=== PATIENT | male | born 1960 | race African-American/Black ===

== ENCOUNTER 2020-04-12 12:25 | Emergency (ER) | payer OTHER ==
[2020-04-12 14:41] VITALS: BMI 25.8
[2020-04-12 15:38] LABS: CALCIUM 8.8 mg/dL (8.5-10.1)
[2020-04-12 15:39] LABS: BLOOD UREA NITROGEN 26.4 mg/dL (7-18)
[2020-04-12 15:42] LABS: CREATININE 1.3 mg/dL (0.55-1.3)
[2020-04-12 15:43] LABS: BILIRUBIN,TOTAL 0.4 mg/dL (0.2-1); TOT PROT 8.2 g/dl (6.4-8.2)
[2020-04-12 15:55] LABS: POTASSIUM 2.5 mmol/L (3.5-5.1)
[2020-04-12] MEDS ORDERED: POTASSIUM CHLORIDE ORAL LIQUID 20 MEQ/15 ML PO ONE (15:56)
[2020-04-12] MEDS ORDERED: POTASSIUM CHLORIDE ORAL LIQUID 20 MEQ/15 ML ONE (16:01)
[2020-04-12 16:38] LABS: MAGNESIUM 2.1 mg/dL (1.8-2.4)
[2020-04-12] MEDS ORDERED: MAGNESIUM SULF 50% (8.12 MEQ/2 ML-1 GM VIAL) IVPB ONE (17:20)
[2020-04-12] MEDS ORDERED: MAGNESIUM SULFATE IN WATER 2 GM/50 ML IVPB IVPB ONE (17:33)
[2020-04-12] MEDS ORDERED: KCL 10 MEQ IVPB 10 MEQ/100 ML INFUS.BAG IVPB SCH (18:15)
[2020-04-12] MEDS ORDERED: KCL 10 MEQ IVPB 10 MEQ/100 ML INFUS.BAG IVPB ONE (18:26)
[2020-04-12 21:56] LABS: BLOOD UREA NITROGEN 23.2 mg/dL (7-18); CALCIUM 8.1 mg/dL (8.5-10.1)
[2020-04-12 21:59] LABS: CREATININE 1.1 mg/dL (0.55-1.3)
[2020-04-12 22:00] LABS: POTASSIUM 2.8 mmol/L (3.5-5.1)
[2020-04-12] MEDS ORDERED: POTASSIUM CHLORIDE TABS 20 MEQ TABLET.ER (FP) PO ONE ×3 (22:11→22:28)
[2020-04-12 22:46] VITALS: BP 126/89; PULSE 82; TEMP 98.9
== END 2020-04-12 23:26 | disposition home or self-care (01) ==
LOC: JER 12:25
PROC: 3E033GC Introduction of Other Therapeutic Substance into Peripheral Vein, Percutaneous Approach (ICD-10-PCS; principal; 2020-04-12)
PROC: 3E033GC Introduction of Other Therapeutic Substance into Peripheral Vein, Percutaneous Approach (ICD-10-PCS; 2020-04-12)
DX: E87.6 Hypokalemia (principal)
CPT/HCPCS: 36415; 80048; 80053; 83735; 93005; 93010; 99284-25

== ENCOUNTER 2020-11-28 15:47 | Observation (INO) | payer OTHER ==
[2020-11-28] MEDS ORDERED: LORazepam 2 MG/ML SDV VIAL IVPUSH ONE (18:10)
[2020-11-28] MEDS ORDERED: LORazepam 2 MG/ML SDV VIAL ONE (18:12)
[2020-11-28 19:35] LABS: BASO % 0.2 % (0-2.0); EOS % 0.4 % (0-4.5); HEMATOCRIT 33.6 % (35.4-49); LYMPH % 14.5 % (8-40); MCH 28.7 pg (25.7-33.7); MCHC 32.8 g/dl (32.0-35.9); MEAN CELL VOLUME 87.4 fl (80-96); MEAN PLT VOLUME 7.1 fl (7.5-11.1); MONO % 12.2 % (3.8-10.2); NEUT % 72.7 % (42.8-82.8); PLATELET COUNT 204 10^3/uL (134-434); RBC 3.84 M/mm3 (4.00-5.60); WHITE BLOOD COUNT 4.5 K/mm3 (4.0-10.0)
[2020-11-28 19:45] LABS: INR 0.89 (0.83-1.09); PROTHROMBIN TIME (PATIENT) 10.8 SEC (9.7-13.0)
[2020-11-28 19:48] LABS: ACTIVATED PTT 26.9 SECONDS (25.2-36.5)
[2020-11-28 19:49] LABS: CHLORIDE 104 mmol/L (98-107); SODIUM 140 mmol/L (136-145)
[2020-11-28 19:51] LABS: CALCIUM 8.5 mg/dL (8.5-10.1)
[2020-11-28 19:53] LABS: ALBUMIN 2.8 g/dl (3.4-5.0); ANION GAP 8 MMOL/L (8-16); BLOOD UREA NITROGEN 21.1 mg/dL (7-18); CO2 28 mmol/L (21-32); GLUCOSE,RANDOM 76 mg/dL (74-106)
[2020-11-28 19:55] LABS: CREATININE 1.3 mg/dL (0.55-1.3); SGOT/AST 21 U/L (15-37); SGPT/ALT 22 U/L (13-61)
[2020-11-28 19:57] LABS: BILIRUBIN,TOTAL 0.3 mg/dL (0.2-1)
[2020-11-28 19:59] LABS: ALK PHOS 100 U/L (45-117)
[2020-11-28] MEDS ORDERED: LACTATED RINGERS SOLUTION 1000 ML INFUS.BAG IV ONE (22:17)
[2020-11-29 00:53] LABS: VENOUS BASE EXCESS 3.1 mmol/L (-2-2); VENOUS O2 SATURATION 97.1 % (70-80); VENOUS PCO2 42.6 mmHg (38-52); VENOUS PH 7.432 (7.310-7.410)
[2020-11-29] MEDS ORDERED: ALBUTEROL SO4 2.5/IPRATROPIUM 0.5 INH SOL 3 ML VIAL.NEB. NEB PRN (05:53)
[2020-11-29 06:30] VITALS: BMI 19.5
[2020-11-29] MEDS ORDERED: BACLOFEN 10 MG TABLET (FP) PO SCH (06:30)
[2020-11-29] MEDS: ENOXAPARIN NA (PORCINE) 40 MG/0.4 ML DISP.SYRIN SQ SCH (10:46)
[2020-11-29] MEDS: PANTOPRAZOLE 40 MG TABLET PO SCH (10:46)
[2020-11-29] MEDS: DARUNAVIR/COB/EMTRI/TENOF (SYMTUZA) TABLET (NF) PO SCH (10:47)
[2020-11-29 11:33] LABS: BASO % 0.3 % (0-2.0); HEMATOCRIT 34.4 % (35.4-49); HEMOGLOBIN 11.3 GM/dL (11.7-16.9); LYMPH % 15.4 % (8-40); MCH 28.3 pg (25.7-33.7); MCHC 32.8 g/dl (32.0-35.9); MEAN CELL VOLUME 86.3 fl (80-96); MEAN PLT VOLUME 7.2 fl (7.5-11.1); MONO % 12.1 % (3.8-10.2); NEUT % 71.2 % (42.8-82.8); PLATELET COUNT 217 10^3/uL (134-434); RBC 3.99 M/mm3 (4.00-5.60); RDW 13.3 % (11.9-15.9); WHITE BLOOD COUNT 6.2 K/mm3 (4.0-10.0)
[2020-11-29 11:51] LABS: BLOOD UREA NITROGEN 20.1 mg/dL (7-18); CALCIUM 8.7 mg/dL (8.5-10.1); MAGNESIUM 1.8 mg/dL (1.8-2.4)
[2020-11-29 11:54] LABS: BILIRUBIN,TOTAL 0.3 mg/dL (0.2-1); CREATININE 1.3 mg/dL (0.55-1.3); PHOSPHOROUS 3.4 mg/dL (2.5-4.9); TOT PROT 8.6 g/dl (6.4-8.2)
[2020-11-29] MEDS ORDERED: METOCLOPRAMIDE HCL INJECTION 10 MG/2 ML VIAL IVPUSH ONE (14:22)
[2020-11-30 01:50] LABS: COCAINE, UR NEGATIVE (NEGATIVE); METHADONE, UR NEGATIVE (NEGATIVE); OPIATES, URI NEGATIVE (NEGATIVE); PHENCYCLIDINE,URINE NEGATIVE (NEGATIVE); URINE BARBITURATES NEGATIVE (NEGATIVE); URINE BENZODIAZEPINES NEGATIVE (NEGATIVE)
[2020-11-30 01:51] LABS: URINE AMPHETAMINES NEGATIVE (NEGATIVE)
[2020-11-30 01:53] LABS: PH,URINE 5.5 (5.0-8.0); URINE APPEARANCE CLEAR; URINE BILIRUBIN 1+ (NEGATIVE); URINE COLOR DK YELLOW; URINE GLUCOSE (UA) NEGATIVE (NEGATIVE); URINE KETONE TRACE (NEGATIVE); URINE LEUK ESTERASE NEGATIVE (NEGATIVE); URINE NITRITE NEGATIVE (NEGATIVE); URINE PROTEIN NEGATIVE (NEGATIVE)
[2020-11-30 09:29] LABS: BASO % 0.3 % (0-2.0); HEMATOCRIT 33.4 % (35.4-49); HEMOGLOBIN 11.3 GM/dL (11.7-16.9); LYMPH % 19.2 % (8-40); MCH 29.5 pg (25.7-33.7); MCHC 33.9 g/dl (32.0-35.9); MEAN CELL VOLUME 87.1 fl (80-96); MEAN PLT VOLUME 7.1 fl (7.5-11.1); MONO % 10.2 % (3.8-10.2); NEUT % 69.3 % (42.8-82.8); PLATELET COUNT 231 10^3/uL (134-434); RBC 3.84 M/mm3 (4.00-5.60); RDW 13.5 % (11.9-15.9); WHITE BLOOD COUNT 4.8 K/mm3 (4.0-10.0)
[2020-11-30 09:56] LABS: CALCIUM 8.7 mg/dL (8.5-10.1)
[2020-11-30 09:57] LABS: BLOOD UREA NITROGEN 22.1 mg/dL (7-18); MAGNESIUM 1.8 mg/dL (1.8-2.4)
[2020-11-30] MEDS ORDERED: PT OWN MED DRAWER 7, Y5N ONE (09:59)
[2020-11-30 10:00] LABS: CREATININE 1.5 mg/dL (0.55-1.3); PHOSPHOROUS 3.6 mg/dL (2.5-4.9)
[2020-11-30] MEDS ORDERED: ESCITALOPRAM OXALATE 10 MG TABLET PO SCH (10:00)
[2020-11-30 10:01] LABS: BILIRUBIN,TOTAL 0.5 mg/dL (0.2-1); TOT PROT 8.6 g/dl (6.4-8.2)
[2020-11-30] MEDS: PANTOPRAZOLE 40 MG TABLET PO SCH (10:02)
[2020-11-30] MEDS: DARUNAVIR/COB/EMTRI/TENOF (SYMTUZA) TABLET (NF) PO SCH (10:02)
[2020-11-30] MEDS: ENOXAPARIN NA (PORCINE) 40 MG/0.4 ML DISP.SYRIN SQ SCH (10:02)
[2020-11-30 11:52] VITALS: BP 110/60; PULSE 70; TEMP 98.7
== END 2020-11-30 14:42 | disposition home or self-care (01) ==
LOC: JER 15:47 → INTOOBSV 11-29 04:23 → JERBED 11-29 04:23 → UNDOADMOB 11-29 04:23 → J6S 11-29 05:56 → JERBED 11-29 05:56 → J6S 11-29 13:57 → JERBED 11-29 13:57
PROVIDERS: ADMIT Internal Medicine; ATTEND Student in an Organized Health Care Education/Training Program
PROC: 3E0F7GC Introduction of Other Therapeutic Substance into Respiratory Tract, Via Natural or Artificial Opening (ICD-10-PCS; principal; 2020-11-29)
PROC: 3E023GC Introduction of Other Therapeutic Substance into Muscle, Percutaneous Approach (ICD-10-PCS; 2020-11-29)
PROC: 3E0337Z Introduction of Electrolytic and Water Balance Substance into Peripheral Vein, Percutaneous Approach (ICD-10-PCS; 2020-11-29)
PROC: 3E033NZ Introduction of Analgesics, Hypnotics, Sedatives into Peripheral Vein, Percutaneous Approach (ICD-10-PCS; 2020-11-29)
DX: J43.9 Emphysema, unspecified (principal); B20 Human immunodeficiency virus [HIV] disease; R06.6 Hiccough; Z29.9 Encounter for prophylactic measures, unspecified; R63.4 Abnormal weight loss; R06.82 Tachypnea, not elsewhere classified; D64.9 Anemia, unspecified; F17.210 Nicotine dependence, cigarettes, uncomplicated; F41.8 Other specified anxiety disorders
CPT/HCPCS: 36415; 70450-TC; 71046-TC-FY; 71275-TC; 74177-TC; 80053; 80307; 81003; 82728; 82803; 83540; 83550; 83735; 84100; 84436; 84443; 84484; 85025; 85045; 85379; 85610; 85730; 86359; 86360; 93005; 93010; 93970-TC; 94640; 99285-25; C9803; G0378; J0475; Q9967; U0003; U0005

== ENCOUNTER 2021-02-20 20:29 | Inpatient (IN) | payer OTHER ==
[2021-02-20 22:45] LABS: BASO % 0.4 % (0-2.0); EOS % 2.2 % (0-4.5); HEMATOCRIT 31.5 % (35.4-49); HEMOGLOBIN 10.7 GM/dL (11.7-16.9); LYMPH % 18.6 % (8-40); MCH 29.1 pg (25.7-33.7); MCHC 33.9 g/dl (32.0-35.9); MONO % 13.3 % (3.8-10.2); NEUT % 65.5 % (42.8-82.8); PLATELET COUNT 143 10^3/uL (134-434); RBC 3.66 M/mm3 (4.00-5.60); RDW 13.8 % (11.9-15.9); WHITE BLOOD COUNT 3.5 K/mm3 (4.0-10.0)
[2021-02-20 23:10] LABS: CHLORIDE 101 mmol/L (98-107); SODIUM 139 mmol/L (136-145)
[2021-02-20 23:13] LABS: CALCIUM 8.5 mg/dL (8.5-10.1)
[2021-02-20 23:14] LABS: ALBUMIN 2.5 g/dl (3.4-5.0); BLOOD UREA NITROGEN 24.5 mg/dL (7-18); CO2 32 mmol/L (21-32); GLUCOSE,RANDOM 80 mg/dL (74-106); MAGNESIUM 2.1 mg/dL (1.8-2.4)
[2021-02-20 23:17] LABS: CREATININE 1.2 mg/dL (0.55-1.3); SGOT/AST 20 U/L (15-37); SGPT/ALT 16 U/L (13-61)
[2021-02-20 23:19] LABS: BILIRUBIN,TOTAL 0.2 mg/dL (0.2-1); TOT PROT 7.9 g/dl (6.4-8.2)
[2021-02-20 23:20] LABS: ALK PHOS 105 U/L (45-117)
[2021-02-20 23:26] LABS: ANION GAP 6 MMOL/L (8-16)
[2021-02-20] MEDS ORDERED: POTASSIUM CHLORIDE TABS 20 MEQ TABLET.ER (FP) PO ONE (23:34)
[2021-02-20] MEDS ORDERED: POTASSIUM CHLORIDE 20 MEQ PREMIX IVPB 100 ML IVPB ONE (23:35)
[2021-02-21] MEDS ORDERED: KCL 10 MEQ IVPB 20 MEQ/200 ML INFUS.BAG IVPB ONE (00:05)
[2021-02-21] MEDS ORDERED: POTASSIUM CHLORIDE ORAL LIQUID 20 MEQ/15 ML PO ONE (04:48)
[2021-02-21] MEDS ORDERED: chlorproMAZINE HCL 25 MG/1 ML AMP IM ONE (04:51)
[2021-02-21] MEDS ORDERED: chlorproMAZINE HCL 25 MG/1 ML AMP ONE (05:01)
[2021-02-21] MEDS ORDERED: POTASSIUM CHLORIDE ORAL LIQUID 20 MEQ/15 ML ONE (05:02)
[2021-02-21] MEDS ORDERED: KCL 10 MEQ IVPB 10 MEQ/100 ML INFUS.BAG IVPB ONE ×3 (05:02→07:29)
[2021-02-21] MEDS: KCL 10 MEQ IVPB 10 MEQ/100 ML INFUS.BAG IVPB SCH ×5 (05:22→23:42)
[2021-02-21 05:40] LABS: EPI CELLS 13 /uL (0-25.1); HYALINE CASTS 2 /uL (0-3.1); PH,URINE 6.5 (5.0-8.0); URINE APPEARANCE CLEAR; URINE BACTERIA 3 /uL (0-1359); URINE BILIRUBIN NEGATIVE (NEGATIVE); URINE COLOR YELLOW; URINE GLUCOSE (UA) NEGATIVE (NEGATIVE); URINE KETONE TRACE (NEGATIVE); URINE LEUK ESTERASE NEGATIVE (NEGATIVE); URINE NITRITE NEGATIVE (NEGATIVE); URINE PROTEIN 2+ (NEGATIVE); URINE RBC 8 /uL (0-23.9); URINE WBC 8 /uL (0-25.8)
[2021-02-21 06:29] LABS: HEMATOCRIT 34.1 % (35.4-49); HEMOGLOBIN 11.6 GM/dL (11.7-16.9); MCH 29.5 pg (25.7-33.7); MCHC 33.9 g/dl (32.0-35.9); MEAN PLT VOLUME 7.3 fl (7.5-11.1); PLATELET COUNT 149 10^3/uL (134-434); RBC 3.92 M/mm3 (4.00-5.60); RDW 14.1 % (11.9-15.9); WHITE BLOOD COUNT 4.1 K/mm3 (4.0-10.0)
[2021-02-21 06:49] LABS: CHLORIDE 102 mmol/L (98-107); SODIUM 139 mmol/L (136-145)
[2021-02-21 06:53] LABS: GLUCOSE,RANDOM 83 mg/dL (74-106)
[2021-02-21 06:57] LABS: CALCIUM 8.4 mg/dL (8.5-10.1)
[2021-02-21 06:58] LABS: ALBUMIN 2.6 g/dl (3.4-5.0); BLOOD UREA NITROGEN 23.5 mg/dL (7-18); CO2 29 mmol/L (21-32); MAGNESIUM 2.2 mg/dL (1.8-2.4)
[2021-02-21 07:01] LABS: CREATININE 1.2 mg/dL (0.55-1.3); PHOSPHOROUS 3.5 mg/dL (2.5-4.9); SGOT/AST 22 U/L (15-37); SGPT/ALT 16 U/L (13-61)
[2021-02-21 07:02] LABS: BILIRUBIN,TOTAL 0.4 mg/dL (0.2-1); TOT PROT 8.1 g/dl (6.4-8.2)
[2021-02-21 07:03] LABS: ALK PHOS 111 U/L (45-117)
[2021-02-21 07:19] LABS: ANION GAP 7 MMOL/L (8-16)
[2021-02-21] MEDS ORDERED: ENOXAPARIN NA (PORCINE) 40 MG/0.4 ML DISP.SYRIN SQ ONE (08:42)
[2021-02-21] MEDS: ENOXAPARIN NA (PORCINE) 40 MG/0.4 ML DISP.SYRIN SQ SCH (09:00)
[2021-02-21 10:41] LABS: VENOUS BASE EXCESS -0.6 mmol/L (-2-2); VENOUS O2 SATURATION 97.3 % (70-80); VENOUS PCO2 38.5 mmHg (38-52); VENOUS PH 7.409 (7.310-7.410)
[2021-02-21] MEDS ORDERED: LACTATED RINGERS SOLUTION 1,000 ML/1,000 ML INFUS.BAG IV ONE (13:46)
[2021-02-21 18:03] LABS: CALCIUM 7.9 mg/dL (8.5-10.1)
[2021-02-21 18:04] LABS: ALBUMIN 2.4 g/dl (3.4-5.0); BLOOD UREA NITROGEN 26.2 mg/dL (7-18); MAGNESIUM 1.7 mg/dL (1.8-2.4)
[2021-02-21 18:06] LABS: CREATININE 1.3 mg/dL (0.55-1.3)
[2021-02-21] MEDS ORDERED: MAGNESIUM SULF 50% (8.12 MEQ/2 ML-1 GM VIAL) IVPB ONE (18:06)
[2021-02-21 18:09] LABS: BILIRUBIN,TOTAL 0.4 mg/dL (0.2-1); TOT PROT 7.7 g/dl (6.4-8.2)
[2021-02-21] MEDS: ESCITALOPRAM OXALATE 10 MG TABLET PO SCH (18:31)
[2021-02-21 18:55] VITALS: BMI 20.1
[2021-02-21] MEDS: DARUNAVIR/COB/EMTRI/TENOF (SYMTUZA) TABLET (NF) PO SCH (21:50)
[2021-02-21] MEDS: BACLOFEN 10 MG TABLET (FP) PO SCH (21:51)
[2021-02-22] MEDS: BACLOFEN 10 MG TABLET (FP) PO SCH ×3 (05:59→23:18)
[2021-02-22 08:46] LABS: BASO % 0.5 % (0-2.0); EOS % 1.6 % (0-4.5); HEMATOCRIT 31.9 % (35.4-49); HEMOGLOBIN 10.9 GM/dL (11.7-16.9); LYMPH % 16.1 % (8-40); MCH 29.4 pg (25.7-33.7); MCHC 34.3 g/dl (32.0-35.9); MEAN CELL VOLUME 85.9 fl (80-96); MEAN PLT VOLUME 6.7 fl (7.5-11.1); NEUT % 73.8 % (42.8-82.8); PLATELET COUNT 144 10^3/uL (134-434); RBC 3.71 M/mm3 (4.00-5.60); RDW 14.1 % (11.9-15.9); WHITE BLOOD COUNT 4.1 K/mm3 (4.0-10.0)
[2021-02-22 09:15] LABS: ALBUMIN 2.3 g/dl (3.4-5.0); BLOOD UREA NITROGEN 23.8 mg/dL (7-18); MAGNESIUM 1.6 mg/dL (1.8-2.4)
[2021-02-22 09:18] LABS: CREATININE 1.4 mg/dL (0.55-1.3)
[2021-02-22 09:19] LABS: BILIRUBIN,TOTAL 0.4 mg/dL (0.2-1); TOT PROT 7.6 g/dl (6.4-8.2)
[2021-02-22] MEDS: ESCITALOPRAM OXALATE 10 MG TABLET PO SCH (09:43)
[2021-02-22] MEDS: ENOXAPARIN NA (PORCINE) 40 MG/0.4 ML DISP.SYRIN SQ SCH (09:44)
[2021-02-22] MEDS: DARUNAVIR/COB/EMTRI/TENOF (SYMTUZA) TABLET (NF) PO SCH (09:44)
[2021-02-22] MEDS ORDERED: LISINOPRIL 5 MG TABLET PO SCH (10:00)
[2021-02-22] MEDS ORDERED: MAGNESIUM SULF 50% (8.12 MEQ/2 ML-1 GM VIAL) IVPB ONE (11:11)
[2021-02-22] MEDS ORDERED: MAGNESIUM OXIDE 400 MG TABLET (FP) PO ONE (11:34)
[2021-02-22] MEDS: KCL 10 MEQ IVPB 10 MEQ/100 ML INFUS.BAG IVPB SCH ×2 (12:13→13:51)
[2021-02-22 20:46] LABS: CHLORIDE 99 mmol/L (98-107); SODIUM 139 mmol/L (136-145)
[2021-02-22 20:48] LABS: BLOOD UREA NITROGEN 27.9 mg/dL (7-18); CALCIUM 8.4 mg/dL (8.5-10.1); CO2 33 mmol/L (21-32); GLUCOSE,RANDOM 91 mg/dL (74-106)
[2021-02-22 20:52] LABS: CREATININE 1.5 mg/dL (0.55-1.3)
[2021-02-22 21:03] LABS: ANION GAP 7 MMOL/L (8-16)
[2021-02-22] MEDS ORDERED: POTASSIUM CHLORIDE TABS 20 MEQ TABLET.ER (FP) PO ONE (21:49)
[2021-02-22] MEDS: MAGNESIUM OXIDE 400 MG TABLET (FP) PO SCH (23:18)
[2021-02-23] MEDS: BACLOFEN 10 MG TABLET (FP) PO SCH ×3 (06:43→21:30)
[2021-02-23 07:20] LABS: HEMATOCRIT 34.7 % (35.4-49); HEMOGLOBIN 11.7 GM/dL (11.7-16.9); MCH 29.5 pg (25.7-33.7); MCHC 33.9 g/dl (32.0-35.9); MEAN PLT VOLUME 7.6 fl (7.5-11.1); PLATELET COUNT 152 10^3/uL (134-434); RBC 3.99 M/mm3 (4.00-5.60); RDW 14.6 % (11.9-15.9); WHITE BLOOD COUNT 5.2 K/mm3 (4.0-10.0)
[2021-02-23 07:38] LABS: ALBUMIN 2.7 g/dl (3.4-5.0); BLOOD UREA NITROGEN 28.8 mg/dL (7-18); CALCIUM 8.6 mg/dL (8.5-10.1)
[2021-02-23 07:42] LABS: BILIRUBIN,TOTAL 0.3 mg/dL (0.2-1); CREATININE 1.6 mg/dL (0.55-1.3); PHOSPHOROUS 3.5 mg/dL (2.5-4.9); TOT PROT 8.4 g/dl (6.4-8.2)
[2021-02-23] MEDS ORDERED: POTASSIUM CHLORIDE TABS 20 MEQ TABLET.ER (FP) PO ONE (08:56)
[2021-02-23] MEDS ORDERED: SODIUM CHLORIDE 1,000 ML IV SCH (09:00)
[2021-02-23] MEDS: DARUNAVIR/COB/EMTRI/TENOF (SYMTUZA) TABLET (NF) PO SCH (09:02)
[2021-02-23] MEDS ORDERED: PT OWN MED DRAWER 7, Y5N ONE (10:00)
[2021-02-23] MEDS: ENOXAPARIN NA (PORCINE) 40 MG/0.4 ML DISP.SYRIN SQ SCH (10:03)
[2021-02-23] MEDS: ESCITALOPRAM OXALATE 10 MG TABLET PO SCH (10:04)
[2021-02-23] MEDS: MAGNESIUM OXIDE 400 MG TABLET (FP) PO SCH ×2 (10:04→21:30)
[2021-02-23 20:49] LABS: BLOOD UREA NITROGEN 31.8 mg/dL (7-18); CALCIUM 8.6 mg/dL (8.5-10.1)
[2021-02-23 20:51] LABS: MAGNESIUM 2.1 mg/dL (1.8-2.4)
[2021-02-23 20:53] LABS: CREATININE 1.7 mg/dL (0.55-1.3)
[2021-02-24] MEDS: BACLOFEN 10 MG TABLET (FP) PO SCH ×3 (06:24→21:54)
[2021-02-24] MEDS ORDERED: PT OWN MED DRAWER 7, Y5N ONE ×2 (08:06→15:35)
[2021-02-24] MEDS: DARUNAVIR/COB/EMTRI/TENOF (SYMTUZA) TABLET (NF) PO SCH (08:21)
[2021-02-24 08:32] LABS: BASO % 0.3 % (0-2.0); HEMATOCRIT 34.2 % (35.4-49); HEMOGLOBIN 11.8 GM/dL (11.7-16.9); LYMPH % 20.4 % (8-40); MCH 29.6 pg (25.7-33.7); MCHC 34.3 g/dl (32.0-35.9); MEAN CELL VOLUME 86.3 fl (80-96); MEAN PLT VOLUME 7.6 fl (7.5-11.1); MONO % 12.4 % (3.8-10.2); NEUT % 63.9 % (42.8-82.8); PLATELET COUNT 175 10^3/uL (134-434); RBC 3.97 M/mm3 (4.00-5.60); RDW 14.2 % (11.9-15.9); WHITE BLOOD COUNT 4.5 K/mm3 (4.0-10.0)
[2021-02-24 08:58] LABS: ALBUMIN 2.6 g/dl (3.4-5.0); CALCIUM 8.5 mg/dL (8.5-10.1)
[2021-02-24 08:59] LABS: BLOOD UREA NITROGEN 30.9 mg/dL (7-18); MAGNESIUM 1.9 mg/dL (1.8-2.4)
[2021-02-24 09:00] LABS: CREATININE 1.5 mg/dL (0.55-1.3)
[2021-02-24 09:02] LABS: BILIRUBIN,TOTAL 0.4 mg/dL (0.2-1); PHOSPHOROUS 4.2 mg/dL (2.5-4.9); TOT PROT 8.7 g/dl (6.4-8.2)
[2021-02-24] MEDS: MAGNESIUM OXIDE 400 MG TABLET (FP) PO SCH ×2 (09:22→21:54)
[2021-02-24] MEDS: ESCITALOPRAM OXALATE 10 MG TABLET PO SCH (09:22)
[2021-02-24] MEDS: ENOXAPARIN NA (PORCINE) 40 MG/0.4 ML DISP.SYRIN SQ SCH (09:23)
[2021-02-24] MEDS ORDERED: POTASSIUM CHLORIDE 40 MEQ in SODIUM CHLORIDE 1,000 ML IV SCH (13:15)
[2021-02-24] MEDS ORDERED: SODIUM CHLORIDE 1,000 ML with POTASSIUM CHLORIDE 40 MEQ IV SCH (13:15)
[2021-02-24] MEDS ORDERED: POTASSIUM CHLORIDE TABS 20 MEQ TABLET.ER (FP) PO ONE (13:45)
[2021-02-24] MEDS: METOCLOPRAMIDE HCL 10 MG TABLET (FP) PO SCH (17:54)
[2021-02-24] MEDS: PANTOPRAZOLE 40 MG TABLET PO SCH (21:54)
[2021-02-25] MEDS: BACLOFEN 10 MG TABLET (FP) PO SCH ×3 (06:03→21:21)
[2021-02-25] MEDS: METOCLOPRAMIDE HCL 10 MG TABLET (FP) PO SCH ×3 (06:03→17:08)
[2021-02-25 07:50] LABS: HEMATOCRIT 29.4 % (35.4-49); HEMOGLOBIN 10.1 GM/dL (11.7-16.9); MCH 29.9 pg (25.7-33.7); MCHC 34.3 g/dl (32.0-35.9); MEAN CELL VOLUME 87.2 fl (80-96); MEAN PLT VOLUME 7.4 fl (7.5-11.1); PLATELET COUNT 146 10^3/uL (134-434); RBC 3.37 M/mm3 (4.00-5.60); RDW 14.3 % (11.9-15.9); WHITE BLOOD COUNT 3.7 K/mm3 (4.0-10.0)
[2021-02-25 08:15] LABS: ALBUMIN 2.3 g/dl (3.4-5.0)
[2021-02-25 08:16] LABS: BLOOD UREA NITROGEN 31.2 mg/dL (7-18); CALCIUM 8.2 mg/dL (8.5-10.1)
[2021-02-25 08:18] LABS: PHOSPHOROUS 3.7 mg/dL (2.5-4.9)
[2021-02-25 08:20] LABS: BILIRUBIN,TOTAL 0.2 mg/dL (0.2-1); CREATININE 1.4 mg/dL (0.55-1.3); TOT PROT 7.5 g/dl (6.4-8.2)
[2021-02-25] MEDS: DARUNAVIR/COB/EMTRI/TENOF (SYMTUZA) TABLET (NF) PO SCH (09:32)
[2021-02-25] MEDS: ESCITALOPRAM OXALATE 10 MG TABLET PO SCH (09:33)
[2021-02-25] MEDS: PANTOPRAZOLE 40 MG TABLET PO SCH ×2 (09:34→21:21)
[2021-02-25] MEDS: ENOXAPARIN NA (PORCINE) 40 MG/0.4 ML DISP.SYRIN SQ SCH (09:34)
[2021-02-25] MEDS: MAGNESIUM OXIDE 400 MG TABLET (FP) PO SCH ×2 (09:34→21:20)
[2021-02-25] MEDS ORDERED: POTASSIUM CHLORIDE TABS 20 MEQ TABLET.ER (FP) PO ONE (12:31)
[2021-02-26] MEDS: METOCLOPRAMIDE HCL 10 MG TABLET (FP) PO SCH ×3 (07:03→15:41)
[2021-02-26] MEDS: BACLOFEN 10 MG TABLET (FP) PO SCH ×3 (07:03→21:20)
[2021-02-26 08:22] LABS: BASO % 0.4 % (0-2.0); EOS % 3.4 % (0-4.5); HEMATOCRIT 30.4 % (35.4-49); HEMOGLOBIN 10.5 GM/dL (11.7-16.9); MCH 29.9 pg (25.7-33.7); MCHC 34.7 g/dl (32.0-35.9); MEAN CELL VOLUME 86.2 fl (80-96); MEAN PLT VOLUME 7.1 fl (7.5-11.1); MONO % 13.3 % (3.8-10.2); NEUT % 62.9 % (42.8-82.8); PLATELET COUNT 152 10^3/uL (134-434); RBC 3.52 M/mm3 (4.00-5.60); RDW 14.4 % (11.9-15.9); WHITE BLOOD COUNT 3.7 K/mm3 (4.0-10.0)
[2021-02-26 08:39] LABS: ALBUMIN 2.6 g/dl (3.4-5.0); BLOOD UREA NITROGEN 23.5 mg/dL (7-18); CALCIUM 8.5 mg/dL (8.5-10.1); MAGNESIUM 2.1 mg/dL (1.8-2.4)
[2021-02-26 08:42] LABS: CREATININE 1.4 mg/dL (0.55-1.3); PHOSPHOROUS 3.6 mg/dL (2.5-4.9)
[2021-02-26 08:43] LABS: BILIRUBIN,TOTAL 0.3 mg/dL (0.2-1); TOT PROT 7.8 g/dl (6.4-8.2)
[2021-02-26] MEDS: ESCITALOPRAM OXALATE 10 MG TABLET PO SCH (09:53)
[2021-02-26] MEDS: MAGNESIUM OXIDE 400 MG TABLET (FP) PO SCH ×2 (09:53→21:21)
[2021-02-26] MEDS: PANTOPRAZOLE 40 MG TABLET PO SCH ×2 (09:53→21:20)
[2021-02-26] MEDS: DARUNAVIR/COB/EMTRI/TENOF (SYMTUZA) TABLET (NF) PO SCH (15:40)
[2021-02-26] MEDS: MAG HYDROX/AL HYDROX/SIMETH 30 ML UNIT-DOSE CUP PO SCH ×2 (15:41→20:02)
[2021-02-27] MEDS: MAG HYDROX/AL HYDROX/SIMETH 30 ML UNIT-DOSE CUP PO SCH ×3 (02:43→14:12)
[2021-02-27] MEDS: BACLOFEN 10 MG TABLET (FP) PO SCH ×2 (06:19→14:12)
[2021-02-27] MEDS: METOCLOPRAMIDE HCL 10 MG TABLET (FP) PO SCH ×3 (06:19→16:45)
[2021-02-27 07:58] LABS: BASO % 0.3 % (0-2.0); HEMATOCRIT 31.3 % (35.4-49); HEMOGLOBIN 10.6 GM/dL (11.7-16.9); LYMPH % 18.7 % (8-40); MCH 29.5 pg (25.7-33.7); MCHC 33.8 g/dl (32.0-35.9); MEAN CELL VOLUME 87.2 fl (80-96); MEAN PLT VOLUME 7.5 fl (7.5-11.1); MONO % 13.3 % (3.8-10.2); NEUT % 65.7 % (42.8-82.8); PLATELET COUNT 164 10^3/uL (134-434); WHITE BLOOD COUNT 4.7 K/mm3 (4.0-10.0)
[2021-02-27 08:17] LABS: CALCIUM 8.8 mg/dL (8.5-10.1)
[2021-02-27 08:18] LABS: ALBUMIN 2.4 g/dl (3.4-5.0); BLOOD UREA NITROGEN 22.4 mg/dL (7-18); MAGNESIUM 2.2 mg/dL (1.8-2.4)
[2021-02-27 08:21] LABS: CREATININE 1.3 mg/dL (0.55-1.3); PHOSPHOROUS 3.3 mg/dL (2.5-4.9)
[2021-02-27 08:23] LABS: BILIRUBIN,TOTAL 0.4 mg/dL (0.2-1); TOT PROT 7.9 g/dl (6.4-8.2)
[2021-02-27] MEDS ORDERED: PT OWN MED DRAWER 7, Y5N ONE (08:27)
[2021-02-27] MEDS: PANTOPRAZOLE 40 MG TABLET PO SCH (10:06)
[2021-02-27] MEDS: ESCITALOPRAM OXALATE 10 MG TABLET PO SCH (10:09)
[2021-02-27] MEDS: ENOXAPARIN NA (PORCINE) 40 MG/0.4 ML DISP.SYRIN SQ SCH (10:11)
[2021-02-27] MEDS: MAGNESIUM OXIDE 400 MG TABLET (FP) PO SCH (10:11)
[2021-02-27] MEDS: DARUNAVIR/COB/EMTRI/TENOF (SYMTUZA) TABLET (NF) PO SCH (11:40)
[2021-02-27 12:00] VITALS: TEMP 98.2
[2021-02-27 14:30] VITALS: BP 122/83; PULSE 107
== END 2021-02-27 17:50 | disposition home or self-care (01) | DRG 641 ==
LOC: JER 20:29 → JERBED 23:43 → J4W 02-21 18:03
PROVIDERS: ADMIT Internal Medicine; ATTEND Internal Medicine
PROC: 0DB68ZX Excision of Stomach, Via Natural or Artificial Opening Endoscopic, Diagnostic (ICD-10-PCS; 2021-02-26)
PROC: 0DB58ZX Excision of Esophagus, Via Natural or Artificial Opening Endoscopic, Diagnostic (ICD-10-PCS; 2021-02-26)
PROC: 0DB98ZX Excision of Duodenum, Via Natural or Artificial Opening Endoscopic, Diagnostic (ICD-10-PCS; principal; 2021-02-26 14:00)
DX: E87.6 Hypokalemia (principal); N17.9 Acute kidney failure, unspecified; Q39.6 Congenital diverticulum of esophagus; R06.6 Hiccough; Z21 Asymptomatic human immunodeficiency virus [HIV] infection status; E86.0 Dehydration; R11.10 Vomiting, unspecified; E83.42 Hypomagnesemia; N18.9 Chronic kidney disease, unspecified; K21.00 Gastro-esophageal reflux disease with esophagitis, without bleeding
CPT/HCPCS: 36415; 71045-TC-FY; 76775-TC; 80048; 80053; 81003; 82088; 82436; 82803; 82962; 83735; 83930; 83935; 84100; 84133; 84244; 84300; 84443; 84484; 85025; 85027; 93005; 93010; 99283-25; C9803; J0475; U0003; U0005

== ENCOUNTER 2024-07-03 16:44 | Observation (INO) | payer OTHER ==
[2024-07-03 18:00] LABS: BASO % 0.8 % (0-2.0); EOS % 0.1 % (0-4.5); HEMATOCRIT 35.9 % (35.4-49); HEMOGLOBIN 11.8 GM/dL (11.7-16.9); LYMPH % 14.4 % (8-40); MCH 28.2 pg (25.7-33.7); MEAN CELL VOLUME 85.6 fl (80-96); MEAN PLT VOLUME 6.8 fl (7.5-11.1); MONO % 10.8 % (3.8-10.2); NEUT % 73.9 % (42.8-82.8); PLATELET COUNT 140 10^3/uL (134-434); RBC 4.19 M/mm3 (4.00-5.60); RDW 15.6 % (11.9-15.9); WHITE BLOOD COUNT 5.3 K/mm3 (4.0-10.0)
[2024-07-03 18:24] LABS: POTASSIUM 4.4 mmol/L (3.5-5.1)
[2024-07-03 18:26] LABS: ALBUMIN 2.5 g/dl (3.4-5.0); CALCIUM 8.4 mg/dL (8.5-10.1); MAGNESIUM 1.9 mg/dL (1.8-2.4)
[2024-07-03 18:27] LABS: BLOOD UREA NITROGEN 28.2 mg/dL (7-18)
[2024-07-03 18:29] LABS: CREATININE 1.4 mg/dL (0.55-1.3)
[2024-07-03 18:31] LABS: BILIRUBIN,TOTAL 0.2 mg/dL (0.2-1); TOT PROT 7.5 g/dl (6.4-8.2)
[2024-07-03] MEDS ORDERED: CEFTRIAXONE 1 G/50 ML PREMIX 50 ML IVPB ONE (21:10)
[2024-07-03] MEDS ORDERED: AZITHROMYCIN IVPB 500 MG/250 ML BAG IVPB ONE (21:10)
[2024-07-03] MEDS: CEFTRIAXONE 1 GM in DEXTROSE 5%-WATER - 100 ML IVPB ONE (21:15)
[2024-07-03] MEDS: AZITHROMYCIN IVPB 500 MG in DEXTROSE 5%-WATER - 250 ML IVPB ONE (21:31)
[2024-07-03] MEDS: ASPIRIN 325 MG ENTERIC COATED TABLET (FP) PO ONE (23:37)
[2024-07-03] MEDS: ATORVASTATIN CA 80 MG TABLET (FP) PO ONE (23:37)
[2024-07-03] MEDS: CLOPIDOGREL BISULFATE 300 MG TABLET PO ONE (23:37)
[2024-07-04] MEDS ORDERED: BACLOFEN 10 MG TABLET (FP) ONE ×2 (00:47→05:34)
[2024-07-04] MEDS: BACLOFEN 10 MG TABLET (FP) PO ONE (00:49)
[2024-07-04] MEDS: SODIUM CHLORIDE 1,000 ML IV SCH (02:48)
[2024-07-04] MEDS: BACLOFEN 10 MG TABLET (FP) PO SCH (06:01)
[2024-07-04 07:05] LABS: HEMATOCRIT 37.6 % (35.4-49); HEMOGLOBIN 12.6 GM/dL (11.7-16.9); MCH 28.6 pg (25.7-33.7); MCHC 33.5 g/dl (32.0-35.9); MEAN CELL VOLUME 85.3 fl (80-96); MEAN PLT VOLUME 6.9 fl (7.5-11.1); PLATELET COUNT 153 10^3/uL (134-434); RDW 15.2 % (11.9-15.9); WHITE BLOOD COUNT 6.3 K/mm3 (4.0-10.0)
[2024-07-04 07:11] LABS: POTASSIUM 4.1 mmol/L (3.5-5.1)
[2024-07-04 07:13] LABS: ALBUMIN 2.7 g/dl (3.4-5.0); CALCIUM 8.7 mg/dL (8.5-10.1)
[2024-07-04 07:17] LABS: CREATININE 1.4 mg/dL (0.55-1.3)
[2024-07-04 07:18] LABS: BILIRUBIN,TOTAL 0.6 mg/dL (0.2-1); TOT PROT 7.6 g/dl (6.4-8.2)
[2024-07-04 07:21] LABS: CHOLESTEROL 182 mg/dL (50-200); HDL CHOLESTEROL 58 mg/dL (40-60)
[2024-07-04 07:22] LABS: LDL CHOLESTEROL (ONLY SJRH) 113 mg/dL (5-100)
[2024-07-04] MEDS: BICTEGRAV/EMTRICIT/TENOFOV (BIKTARVY) 50-200-25 MG TABLET PO SCH (08:04)
[2024-07-04] MEDS ORDERED: CEFTRIAXONE 1 G/50 ML PREMIX 50 ML IVPB ONE (10:03)
[2024-07-04] MEDS ORDERED: AZITHROMYCIN IVPB 500 MG/250 ML BAG IVPB ONE (10:04)
[2024-07-04] MEDS: CLOPIDOGREL BISULFATE 75 MG TABLET (FP) PO SCH (10:14)
[2024-07-04] MEDS: CEFTRIAXONE 1 G/50 ML PREMIX 50 ML IVPB SCH (10:14)
[2024-07-04] MEDS: POTASSIUM CHLORIDE ORAL LIQUID 20 MEQ/15 ML PO SCH (10:14)
[2024-07-04] MEDS: ASPIRIN 81 MG CHEWABLE TABLETS PO SCH (10:14)
[2024-07-04] MEDS: AZITHROMYCIN IVPB 500 MG/250 ML BAG IVPB SCH (10:41)
[2024-07-04 12:52] LABS: HIV INTERPRETATION PRESUMPTIVE POSITIVE (NEGATIVE)
[2024-07-04] MEDS ORDERED: VANCOMYCIN 1 GM PREMIX (F) 1 GM/200 ML BAG ONE (15:29)
[2024-07-04] MEDS: AMPICILLIN NA/SULBACTAM NA 1.5 GM in SODIUM CHLORIDE 100 ML IVPB SCH (16:39)
[2024-07-04] MEDS: CEFEPIME HCL/D5W 2 GM/50 ML PREMIX IVPB ONE (16:39)
[2024-07-04] MEDS: VANCOMYCIN/WATER FOR INJ (PEG) 1,000 MG/200 ML BAG IVPB ONE (16:39)
[2024-07-04] MEDS: VANCOMYCIN 1 GM PREMIX (F) 1,000 MG/200 ML BAG IVPB ONE (16:56)
[2024-07-04] MEDS ORDERED: ATORVASTATIN CA 80 MG TABLET (FP) PO SCH (22:00)
[2024-07-04] MEDS: ATORVASTATIN CA 80 MG TABLET (FP) PO SCH (22:38)
[2024-07-05] MEDS: SODIUM CHLORIDE 1,000 ML IV SCH (17:11)
[2024-07-05] MEDS: HEPARIN NA (PORCINE) 5,000 UNITS/ML 1ML VIAL SQ SCH (21:41)
[2024-07-05] MEDS: ATORVASTATIN CA 40 MG TABLET (FP) PO SCH (21:41)
[2024-07-06] MEDS: SULFAMETHOXAZOLE/TRIMETHOPRIM 800MG/160MG D.S. TABLET PO SCH (09:28)
[2024-07-06 11:51] LABS: BASO % 0.5 % (0-2.0); EOS % 0.4 % (0-4.5); HEMATOCRIT 37.2 % (35.4-49); LYMPH % 12.7 % (8-40); MCH 27.9 pg (25.7-33.7); MCHC 32.3 g/dl (32.0-35.9); MEAN CELL VOLUME 86.5 fl (80-96); MEAN PLT VOLUME 6.9 fl (7.5-11.1); MONO % 9.3 % (3.8-10.2); NEUT % 77.1 % (42.8-82.8); PLATELET COUNT 137 10^3/uL (134-434); RDW 15.5 % (11.9-15.9); WHITE BLOOD COUNT 5.3 K/mm3 (4.0-10.0)
[2024-07-06 12:19] LABS: POTASSIUM 4.6 mmol/L (3.5-5.1)
[2024-07-06 12:21] LABS: ALBUMIN 2.7 g/dl (3.4-5.0); BLOOD UREA NITROGEN 31.4 mg/dL (7-18); CALCIUM 8.5 mg/dL (8.5-10.1)
[2024-07-06 12:25] LABS: CREATININE 1.4 mg/dL (0.55-1.3)
[2024-07-06 12:26] LABS: BILIRUBIN,TOTAL 0.3 mg/dL (0.2-1); TOT PROT 7.5 g/dl (6.4-8.2)
[2024-07-06] MEDS: metoPROLOL SUCCINATE 25 MG TAB.SR.24H (FP) PO SCH (15:25)
[2024-07-06] MEDS: ATORVASTATIN CA 40 MG TABLET (FP) PO SCH (21:19)
[2024-07-06] MEDS: SACUBITRIL/VALSARTAN 24 MG-26 MG TABLET PO SCH (21:19)
[2024-07-06] MEDS ORDERED: APIXABAN 5 MG TABLET PO SCH (22:00)
[2024-07-06 23:42] VITALS: BMI 20.3
[2024-07-07 07:55] LABS: BASO % 0.4 % (0-2.0); EOS % 0.8 % (0-4.5); HEMATOCRIT 37.5 % (35.4-49); HEMOGLOBIN 12.3 GM/dL (11.7-16.9); LYMPH % 20.9 % (8-40); MCH 28.2 pg (25.7-33.7); MCHC 32.9 g/dl (32.0-35.9); MEAN CELL VOLUME 85.7 fl (80-96); MONO % 14.3 % (3.8-10.2); NEUT % 63.6 % (42.8-82.8); PLATELET COUNT 150 10^3/uL (134-434); RBC 4.37 M/mm3 (4.00-5.60); RDW 15.3 % (11.9-15.9); WHITE BLOOD COUNT 5.4 K/mm3 (4.0-10.0)
[2024-07-07] MEDS ORDERED: APIXABAN 5 MG TABLET PO SCH ×2 (08:00→10:00)
[2024-07-07 08:18] LABS: POTASSIUM 4.5 mmol/L (3.5-5.1)
[2024-07-07 08:28] LABS: CALCIUM 8.6 mg/dL (8.5-10.1)
[2024-07-07 08:29] LABS: ALBUMIN 2.8 g/dl (3.4-5.0); BILIRUBIN,TOTAL 0.4 mg/dL (0.2-1); BLOOD UREA NITROGEN 35.9 mg/dL (7-18); MAGNESIUM 2.1 mg/dL (1.8-2.4)
[2024-07-07 08:30] LABS: CREATININE 1.7 mg/dL (0.55-1.3)
[2024-07-07 08:32] LABS: PHOSPHOROUS 4.4 mg/dL (2.5-4.9); TOT PROT 7.6 g/dl (6.4-8.2)
[2024-07-07] MEDS: ASPIRIN COATED 81 MG TABLET.EC PO SCH (09:44)
[2024-07-07] MEDS: SODIUM CHLORIDE 500 ML IV STA (16:01)
[2024-07-07] MEDS ORDERED: SODIUM CHLORIDE 500 ML IV STA (16:46)
[2024-07-07] MEDS: SODIUM CHLORIDE 1,000 ML IV SCH (17:04)
[2024-07-08 03:43] VITALS: RESP 18
[2024-07-08 08:41] LABS: POTASSIUM 4.6 mmol/L (3.5-5.1)
[2024-07-08 08:42] LABS: CALCIUM 8.7 mg/dL (8.5-10.1)
[2024-07-08 08:43] LABS: BLOOD UREA NITROGEN 39.7 mg/dL (7-18)
[2024-07-08 08:44] LABS: MAGNESIUM 2.2 mg/dL (1.8-2.4)
[2024-07-08 08:46] LABS: CREATININE 1.8 mg/dL (0.55-1.3)
[2024-07-08 08:47] LABS: PHOSPHOROUS 3.6 mg/dL (2.5-4.9)
[2024-07-08] MEDS: metoPROLOL SUCCINATE 25 MG TAB.SR.24H (FP) PO SCH (10:47)
[2024-07-09 07:02] VITALS: BP 130/88; PULSE 92; TEMP 98.6
[2024-07-09 08:11] LABS: BLOOD UREA NITROGEN 42.4 mg/dL (7-18); CALCIUM 8.9 mg/dL (8.5-10.1)
[2024-07-09 08:12] LABS: MAGNESIUM 2.2 mg/dL (1.8-2.4)
[2024-07-09 08:14] LABS: POTASSIUM 4.8 mmol/L (3.5-5.1)
[2024-07-09 08:15] LABS: CREATININE 1.7 mg/dL (0.55-1.3); PHOSPHOROUS 3.5 mg/dL (2.5-4.9)
== END 2024-07-09 11:40 | disposition home health service (06) ==
LOC: JER 16:44 → JERBED 22:10 → J4W 07-04 16:34
PROVIDERS: ADMIT Internal Medicine; ATTEND Internal Medicine
PROC: 3E03329 Introduction of Other Anti-infective into Peripheral Vein, Percutaneous Approach (ICD-10-PCS; principal; 2024-07-03)
PROC: 3E023GC Introduction of Other Therapeutic Substance into Muscle, Percutaneous Approach (ICD-10-PCS; 2024-07-03)
PROC: 3E0337Z Introduction of Electrolytic and Water Balance Substance into Peripheral Vein, Percutaneous Approach (ICD-10-PCS; 2024-07-03)
DX: I50.20 Unspecified systolic (congestive) heart failure (principal); I95.1 Orthostatic hypotension; N18.31 Chronic kidney disease, stage 3a; B20 Human immunodeficiency virus [HIV] disease; R06.6 Hiccough; R79.89 Other specified abnormal findings of blood chemistry; Z86.73 Personal history of transient ischemic attack (TIA), and cerebral infarction without residual deficits; N17.9 Acute kidney failure, unspecified; E87.6 Hypokalemia; F17.210 Nicotine dependence, cigarettes, uncomplicated
CPT/HCPCS: 0241U-QW; 36415; 70450-TC; 70496-TC; 70498-TC; 70551-TC; 70552-TC; 71045-TC-FY; 71275-TC; 76775-TC; 80048; 80053; 80061; 83036; 83690; 83735; 84100; 84484; 85025; 85027; 85379; 86480; 86780; 87070; 87116; 87186; 87205; 87206; 87389; 87536; 87899; 93005; 93010; 93306-TC; 97116-GP; 97161-GP; 99285-25; G0378; J0475; J1644; Q9967

== ENCOUNTER 2024-11-07 17:57 | Inpatient (IN) | payer OTHER ==
[2024-11-07 19:05] LABS: MEAN CELL VOLUME 89.8 fl (79.0-92.2)
[2024-11-07 19:06] LABS: ABSOLUTE IMMATURE GRANULOCYTES 0.03 x10^3/uL (0.0-0.031); BASOPHILS # 0.03 x10^3/uL (0.01-0.08); EOSINOPHIL % 0.5 % (0.8-7.0); EOSINOPHILS # 0.04 x10^3/uL (0.04-0.54); IMMATURE PLATELET FRACTION # 3.50 x10^3/uL; MCHC 32.5 g/dl (32.3-36.5); MEAN PLT VOLUME 9.2 fl (9.4-12.4); MONOCYTE # 0.88 x10^3/uL (0.30-0.82); MONOCYTE % 10.3 % (5.3-12.2); RDW 13.5 % (12.2-16.4)
[2024-11-07 19:22] LABS: CO2 27.0 mmol/L (21-32)
[2024-11-07 19:23] LABS: GLUCOSE,RANDOM 117.0 mg/dL (74-106)
[2024-11-07 19:25] LABS: CREATININE 2.7 mg/dL (0.55-1.3)
[2024-11-07 19:26] LABS: SGOT/AST 32.0 U/L (15-37); SGPT/ALT 22.0 U/L (13-61)
[2024-11-07 19:27] LABS: TOT PROT 8.2 g/dl (6.4-8.2)
[2024-11-07 19:28] LABS: ALK PHOS 140.0 U/L (45-117)
[2024-11-07] MEDS ORDERED: KCL 10 MEQ IVPB 20 MEQ/200 ML INFUS.BAG IVPB ONE (21:22)
[2024-11-07] MEDS: KCL 10 MEQ IVPB 10 MEQ/100 ML INFUS.BAG IVPB SCH (21:40)
[2024-11-07] MEDS ORDERED: POTASSIUM CHLORIDE ORAL LIQUID 20 MEQ/15 ML ONE (22:33)
[2024-11-07] MEDS: POTASSIUM CHLORIDE ORAL LIQUID 20 MEQ/15 ML PO ONE (22:38)
[2024-11-08] MEDS ORDERED: KCL 10 MEQ IVPB 10 MEQ/100 ML INFUS.BAG IVPB ONE (00:02)
[2024-11-08] MEDS: SODIUM CHLORIDE 1,000 ML IV SCH (03:02)
[2024-11-08 04:11] LABS: CO2 21.0 mmol/L (21-32)
[2024-11-08 04:12] LABS: GLUCOSE,RANDOM 98.0 mg/dL (74-106)
[2024-11-08 04:15] LABS: CREATININE 2.5 mg/dL (0.55-1.3)
[2024-11-08 06:30] LABS: RDW 13.4 % (12.2-16.4)
[2024-11-08 06:32] LABS: IMMATURE PLATELET FRACTION # 2.40 x10^3/uL; MCHC 32.4 g/dl (32.3-36.5); MEAN CELL VOLUME 90.1 fl (79.0-92.2); MEAN PLT VOLUME 9.0 fl (9.4-12.4)
[2024-11-08] MEDS ORDERED: HEPARIN NA (PORCINE) 5,000 UNITS/ML 1ML VIAL ONE (06:33)
[2024-11-08] MEDS: HEPARIN NA (PORCINE) 5,000 UNITS/ML 1ML VIAL SQ SCH (06:38)
[2024-11-08 06:54] LABS: CO2 24.0 mmol/L (21-32); GLUCOSE,RANDOM 95.0 mg/dL (74-106)
[2024-11-08 06:57] LABS: CREATININE 2.4 mg/dL (0.55-1.3); SGOT/AST 20.0 U/L (15-37); SGPT/ALT 20.0 U/L (13-61)
[2024-11-08 06:58] LABS: TOT PROT 7.4 g/dl (6.4-8.2)
[2024-11-08 07:00] LABS: ALK PHOS 122.0 U/L (45-117)
[2024-11-08] MEDS: LACTATED RINGERS SOLUTION 1,000 ML/1,000 ML INFUS.BAG IV SCH (07:31)
[2024-11-08] MEDS ORDERED: POTASSIUM CHLORIDE ORAL LIQUID 20 MEQ/15 ML ONE (08:27)
[2024-11-08] MEDS: POTASSIUM CHLORIDE ORAL LIQUID 20 MEQ/15 ML PO ONE (08:33)
[2024-11-08] MEDS: BICTEGRAV/EMTRICIT/TENOFOV (BIKTARVY) 50-200-25 MG TABLET PO SCH (08:33)
[2024-11-08] MEDS ORDERED: PATIENT'S OWN MEDICATION (NON-FORMULARY) (Omeprazole [Omeprazole] 20 MG Tablet.Dr) PO SCH (10:00)
[2024-11-08] MEDS ORDERED: ASPIRIN COATED 81 MG TABLET.EC ONE (10:07)
[2024-11-08] MEDS: ASPIRIN COATED 81 MG TABLET.EC PO SCH (10:09)
[2024-11-08 14:48] VITALS: BMI 20.8
[2024-11-08 19:38] LABS: URINE APPEARANCE CLEAR; URINE BILIRUBIN NEGATIVE (NEGATIVE); URINE COLOR YELLOW; URINE GLUCOSE (UA) NEGATIVE (NEGATIVE); URINE KETONE NEGATIVE (NEGATIVE); URINE LEUK ESTERASE NEGATIVE (NEGATIVE); URINE NITRITE NEGATIVE (NEGATIVE); URINE PROTEIN TRACE (NEGATIVE); URINE UROBILINOGEN 0.2 mg/dL (0.2-1.0)
[2024-11-08] MEDS: ATORVASTATIN CA 40 MG TABLET (FP) PO SCH (21:14)
[2024-11-09 08:07] LABS: MCHC 32.0 g/dl (32.3-36.5); MEAN CELL VOLUME 91.1 fl (79.0-92.2); MEAN PLT VOLUME 9.9 fl (9.4-12.4); RDW 13.3 % (12.2-16.4)
[2024-11-09 08:29] LABS: CO2 27.0 mmol/L (21-32)
[2024-11-09 08:30] LABS: GLUCOSE,RANDOM 94.0 mg/dL (74-106)
[2024-11-09 08:32] LABS: CREATININE 1.5 mg/dL (0.55-1.3); SGOT/AST 22.0 U/L (15-37); SGPT/ALT 22.0 U/L (13-61)
[2024-11-09 08:34] LABS: TOT PROT 6.8 g/dl (6.4-8.2)
[2024-11-09 08:35] LABS: ALK PHOS 124.0 U/L (45-117)
[2024-11-09] MEDS ORDERED: PATIENT'S OWN MEDICATION (NON-FORMULARY) (Spironolactone [Spironolactone] 50 MG Tablet) PO SCH (12:45)
[2024-11-09] MEDS: POTASSIUM CHLORIDE ORAL LIQUID 20 MEQ/15 ML PO SCH (13:14)
[2024-11-09] MEDS: POLYETHYLENE GLYCOL (HEALTHYLAX) 3350 17 GM PACKET PO SCH (18:02)
[2024-11-09] MEDS: POTASSIUM CHLORIDE ORAL LIQUID 20 MEQ/15 ML PO ONE (21:13)
[2024-11-09] MEDS: BENZTROPINE MESYLATE 0.5 MG TABLET (FP) PO SCH (21:29)
[2024-11-10 02:47] VITALS: RESP 18
[2024-11-10] MEDS: SPIRONOLACTONE 25 MG TABLET PO SCH (05:54)
[2024-11-10 07:27] LABS: MEAN PLT VOLUME 9.6 fl (9.4-12.4); RDW 13.0 % (12.2-16.4)
[2024-11-10 07:28] LABS: IMMATURE PLATELET FRACTION # 2.10 x10^3/uL; MCHC 32.7 g/dl (32.3-36.5); MEAN CELL VOLUME 89.6 fl (79.0-92.2)
[2024-11-10 07:56] LABS: CO2 27.0 mmol/L (21-32); GLUCOSE,RANDOM 87.0 mg/dL (74-106)
[2024-11-10 07:59] LABS: CREATININE 1.3 mg/dL (0.55-1.3)
[2024-11-10] MEDS: POTASSIUM CHLORIDE TABS 20 MEQ TABLET.ER (FP) PO ONE (11:12)
[2024-11-10] MEDS: BACLOFEN 10 MG TABLET (FP) PO PRN (11:15)
[2024-11-10 13:42] VITALS: BP 108/70; PULSE 63; TEMP 98.4
[2024-11-11] MEDS ORDERED: SULFAMETHOXAZOLE/TRIMETHOPRIM 800MG/160MG D.S. TABLET PO SCH (10:00)
== END 2024-11-10 15:30 | disposition home or self-care (01) | DRG 641 ==
LOC: JER 17:57 → JERBED 20:05 → OBSVTOIN 22:06 → J4W 11-08 14:35
PROVIDERS: ADMIT Internal Medicine; ATTEND Internal Medicine
DX: E87.6 Hypokalemia (principal); N17.9 Acute kidney failure, unspecified; D61.818 Other pancytopenia; I13.0 Hypertensive heart and chronic kidney disease with heart failure and stage 1 through stage 4 chronic kidney disease, or unspecified chronic kidney disease; I50.22 Chronic systolic (congestive) heart failure; N18.30 Chronic kidney disease, stage 3 unspecified; R06.6 Hiccough; Z21 Asymptomatic human immunodeficiency virus [HIV] infection status
CPT/HCPCS: 36415; 71250-TC; 76775-TC; 80048; 80053; 81003; 82436; 82570; 83735; 83930; 83935; 84100; 84132; 84133; 84300; 85025; 85027; 86359; 86360; 93005; 93010; 99285-25; G0378; J0475